=== PATIENT | female | born 1985 | race Caucasian/White ===

== ENCOUNTER 2017-07-31 02:50 | Emergency (ER) | payer MEDICAID ==
[~2017-07-31] VITALS: Ht 160 cm; Wt 100.0 kg
[2017-07-31] MEDS ORDERED: HYDROCODONE/ACETAMINOPHEN 5-325 MG TABLET PO ONE (05:30)
[2017-07-31 06:26] VITALS: BP 139/93
== END 2017-07-31 06:30 | disposition home or self-care (01) ==
LOC: EMS 02:51
DX: K02.9 Dental caries, unspecified (principal)
CPT/HCPCS: 99283